=== PATIENT | male | born 2000 | race Two or more races ===

== ENCOUNTER 2025-01-25 13:16 | Inpatient (IN) | payer MEDICAID, OTHER ==
[~2025-01-25] VITALS: Ht 190.5 cm; Wt 137.8 kg
--- NOTE | 2025-01-25 14:05 | ED.PDOC ---
HPI (NEURO) HPI Comments This is a 24 year old male CHE[place] presenting to the ED with chief complaint of seizure. EMS reports patient was witnessed by step-father to have had a seizure lasting about a minute today, lowering him to the floor to prevent a fall or injury. EMS relays patient has had 2 seizures in the past, however, he has not been properly diagnosed with seizures and has not followed up with a neurologist. Patient denies any incontinence, oral trauma, head injury, fever, chills, chest pain, or headache. Chief Complaint: Seizure Time Seen by MD: 14:03 Reviewed Notes: Nurses Notes, Caser In Notes, Medications, Allergies Information Source: Patient, Emergency Med Personnel Mode of Arrival: EMS Severity: Moderate Timing: Hours Duration: Minutes Prehospital treatment: None Seizure Quality: Tonic-clonic Seizure Location: Generalized Onset: At rest Circumstances: Spontaneous Modifying factors: Nothing Past Medical History PAST MEDICAL HISTORY: Denies Surgical History: Denies all surgeries Family History Family History: Reviewed,noncontributory to illness Social History Smoker: Non-Smoker Alcohol: Denies ETOH Use Drugs: Denies Drug Use Lives In: Home Constitutional: denies: chills, diaphoresis, fatigue, fever, malaise, sweats, weakness, others EENTM: denies: blurred vision, double vision, ear bleeding, ear discharge, ear drainage, ear pain, ear ringing, eye pain, eye redness, hearing loss, mouth pain, mouth swelling, nasal discharge, nose bleeding, nose congestion, nose pain, photophobia, tearing, throat pain, throat swelling, voice changes, others Respiratory: denies: cough, hemoptysis, orthopnea, SOB at rest, shortness of breath, SOB with excertion, stridor, wheezing, others Cardiovascular: denies: chest pain, dizzy spells, diaphoresis, Dyspnea on exertion, edema, irregular heart beat, left arm pain, lightheadedness, palpitations, PND, syncope, others Gastrointestinal: denies: abdomen distended, abdominal pain, blood streaked bowels, constipated, diarrhea, dysphagia, difficulty swallowing, hematemesis, m nomi, nausea, poor appetite, poor fluid intake, rectal bleeding, rectal pain, vomiting, others Genitourinary: denies: burning, dysuria, flank pain, frequency, hematuria, incontinence, penile discharge, penile sore, pain, testicle pain, testicle swelling, urgency, others Neurological: reports: seizure; denies: dizziness, fainting, headache, left sided numbness, left sided weakness, numbness, paresthesia, pre-existing deficit, right sided numbness, right sided weakness, speech problems, tingling, tremors, weakness, others Musculoskeletal: denies: back pain, gout, joint pain, joint swelling, muscle pain, muscle stiffness, neck pain, others Integumetry: denies: bruises, change in color, change in hair/nails, dryness, laceration, lesions, lumps, rash, wounds, others Allergic/Immunocompromised: denies: Difficulty Healing, Frequent Infections, Hives, Itching, others Hematologic/Lymphatic: denies: anemia, blood clots, easy bleeding, easy bruising, swollen glands, others Endocrine: denies: excessive hunger, excessive sweating, excessive thirst, excessive urination, flushing, intolerance to cold, intolerance to heat, unexplained weight gain, unexplained weight loss, others Psychiatric: denies: anxiety, bipolar disorder, depression, hopeless, panic disorder, schizophrenia, sleepless, suicidal, others All Other Systems: Reviewed and Negative Physical Exam General Appearance: No Apparent Distress, Normal HEENT: Normal ENT Inspection, Pharynx Normal, TMs Normal Neck: Full Range of Motion, Non-Tender, Normal, Normal Inspection Respiratory: Chest Non-Tender, Lungs Clear, No Accessory Muscle Use, No Respiratory Distress, Normal Breath Sounds Cardiovascular: No Edema, No JVD, No Murmur, No Gallop, Normal Peripheral Pulses, Regular Rate/Rhythm Breast Exam: Deferred Gastrointestinal: No Organomegaly, Non Tender, No Pulsatile Mass, Normal Bowel Sounds, Soft Genitalia: Deferred Pelvic: Deferred Rectal: Deferred Extremities: No calf tenderness, Normal capillary refill, Normal inspection, Normal range of motion, Non-tender, No pedal edema Musculoskeletal : Apperance: Normal Neurologic: Alert, structures assembler II-XII nml as Tested, No Motor Deficits, Normal Affect, Normal Mood, No Sensory Deficits Cerebellar Function: Normal Reflexes: Normal Skin: Dry, Normal Color, Warm Lymphatic: No Adenopathy Was a procedure done? Was a procedure done?: No Differential Diagnosis (SZ) Seizure: CVA/TIA, Hypocalcemia CVA: Delirium Tremens General Weakness: Hypotension, Hypovolemia Headache: Closed Head Injury, Carbon Monoxide Toxicity, CVA, Subarachnoid Hemorrhage X-Ray, Labs, Meds, VS Vital Signs Date Time Temp Pulse Resp B/P (MAP) Pulse Ox O2 Delivery O2 Flow Rate FiO2 01/25/25 14:02 98.8 102 17 132/98 (109) 100 98.8 01/25/25 14:02 Room Air* 0 21 01/25/25 13:23 98.9 108 16 138/83 96 98.9 Lab Test 01/25/25 16:00 01/25/25 14:09 01/25/25 13:37 Range/Units Urine Color Light-yellow Yellow Urine Clarity Clear Clear Urine pH 5.5 5.0-9.0 Urine Specific [place] 1.014 1.001-1.035 Urine Protein Negative Negative Urine Ketones Trace Negative Urine Blood Negative Negative /uL Urine Nitrite Negative Negative Urine Bilirubin Negative Negative Urine Urobilinogen Normal Negative mg/dL Urine Leukocyte Esterase Negative Negative /uL Urine RBC None seen 0 - 3 /hpf Urine Microscopic WBC 1 0-3 /HPF Urine Squamous Epithelial Cells None seen <5 /hpf Urine Bacteria None seen None Seen /hpf Urine Glucose Normal Normal mg/dL Troponin I High Sensitivity 22 4 </=54 ng/L White Blood Count 9.5 4.4-10.8 10^3/uL Red Blood Count 5.25 4.5-5.90 10^6/uL Hemoglobin 16.3 13.5-17.5 g/dL Hematocrit 46.6 41.0-53.0 % Mean Corpuscular Volume 88.8 80.0-100.0 fL Mean Corpuscular Hemoglobin 31.0 28.0-32.0 pg Mean Corpuscular Hemoglobin Concent 34.9 32.0-36.0 g/dL Red Cell Distribution Width 13.2 11.8-14.3 % Platelet Count 335 140-450 10^3/uL Mean Platelet Volume 7.5 6.9-10.8 fL Neutrophils (%) (Auto) 62.2 37.0-80.0 % Lymphocytes (%) (Auto) 29.4 10.0-50.0 % Monocytes (%) (Auto) 6.6 0.0-12.0 % Eosinophils (%) (Auto) 1.4 0.0-7.0 % Basophils (%) (Auto) 0.4 0.0-2.0 % Neutrophils # (Auto) 5.9 1.6-8.6 10 ^3/uL Lymphocytes # (Auto) 2.8 0.4-5.4 10 ^3/uL Monocytes # (Auto) 0.6 0-1.3 10 ^3/uL Eosinophils # (Auto) 0.1 0-0.8 10 ^3/uL Basophils # (Auto) 0 0-0.2 10 ^3/uL Nucleated Red Blood Cells 0.1 % Sodium Level 140 136-145 mmol/L Potassium Level 3.9 3.5-5.1 mmol/L Chloride Level 102 98-107 mmol/L Carbon Dioxide Level 24 20-31 mmol/L Anion Gap 14 5-15 Blood Urea Nitrogen 12 9-23 mg/dL Creatinine 1.12 0.700-1.30 mg/dL Glomerular Filtration Rate Calc 94 >90 mL/min BUN/Creatinine Ratio 10.7 10.0-20.0 Serum Glucose 99 74-106 mg/dL Calcium Level 9.8 8.7-10.4 mg/dL Time of 1ST Reevaluation: 15:02 Reevaluation 1ST: Unchanged Patient Education/Counseling: Diagnosis, Treatment Family Education/Counseling: No Family Present Departure 1 Departure Time of Disposition: 17:13 (Patient likely with seizure disorder. Patient has not been evaluated for this prior and with the worsening seizures. Patient takes no medications. We will admit patient for further workup and expert consultation) Impression: Primary Impression: New onset seizure Disposition: ADMITTED INPATIENT Admit to: Med Surg Condition: Serious Critical Care Note Critical Care Time?: No Stability Stability form required: No Heart Score Heart Score: Heart Score Response (Comments) Value History N/A 0 EKG N/A 0 Age N/A 0 Risk Factors N/A 0 Troponin N/A 0 Total 0 I personally scribed for THOMAS SAMPSON MD ([email or web address]) on 01/25/25 at 14:05. Electronically submitted by Flakito Guerrero ([email or web address]). THOMAS SAMPSON MD Jan 25, 2025 14:05
[2025-01-25 14:11] LABS: Hematocrit 46.6 % (41.0-53.0); Hemoglobin 16.3 g/dL (13.5-17.5); Mean Corpuscular Hemoglobin 31.0 pg (28.0-32.0); Mean Corpuscular Volume 88.8 fL (80.0-100.0); Nucleated Red Blood Cells % 0.1 %
[2025-01-25 14:19] LABS: Chloride 102 mmol/L (98-107); Potassium 3.9 mmol/L (3.5-5.1); Sodium 140 mmol/L (136-145)
[2025-01-25 14:20] LABS: Anion Gap 14 (5-15); Calcium 9.8 mg/dL (8.7-10.4); Carbon Dioxide 24 mmol/L (20-31)
[2025-01-25 14:25] LABS: BUN/Creatinine Ratio 10.7 (10.0-20.0); Blood Urea Nitrogen 12 mg/dL (9-23); Glucose 99 mg/dL (74-106)
--- NOTE | 2025-01-25 14:44 | DVH ---
CHEST RADIOGRAPH Indication: Seizure Technique: XY CHEST PORTABLE Comparison: None FINDINGS: The cardiac silhouette is unremarkable. The lungs demonstrate no pulmonary airspace consolidation. The pulmonary vasculature is prominent. There is no pleural effusion. There is no pneumothorax. IMPRESSION: Pulmonary vasculature congestion.
--- NOTE | 2025-01-25 15:37 | DVH ---
CLINICAL HISTORY: Seizure TECHNIQUE: Helical scanning was performed of the head from the skull base to the vertex. Multiplanar reconstructions were performed. This exam was performed according to our departmental dose optimization program. Up-to-date CT equipment and radiation dose reduction techniques are utilized as appropriate. CTDI 53 DLP 967 COMPARISON: None FINDINGS: There is no evidence for acute intracranial hemorrhage, acute ischemic changes, mass, mass effect, or extra-axial fluid collection. There is no hydrocephalus or midline shift. There is no effacement of the cerebral sulci and basal subarachnoid cisterns. The almonte-white matter differentiation is well maintained. The imaged paranasal sinuses are clear. IMPRESSION: NO ACUTE INTRACRANIAL ABNORMALITY SEEN.
[2025-01-25 16:16] LABS: Urine Protein, UAD Negative (Negative)
[2025-01-25] MEDS ORDERED: ONDANSETRON HCL 4 MG/2 ML VIAL IV PRN (19:15)
[2025-01-25] MEDS ORDERED: LORazepam 2MG/ML-1ML VIAL IV PRN (19:15)
[2025-01-25] MEDS ORDERED: TEMAZEPAM 15 MG CAP PO PRN (19:15)
[2025-01-25] MEDS ORDERED: ACETAMINOPHEN 325 MG TAB PO PRN (19:15)
[2025-01-25 20:21] VITALS: PULSE 66; RESP 20; O2SAT 96
--- NOTE | 2025-01-25 22:20 | DVHHP2 ---
History of Present Illness Reason for Visit: Seizure History of Present Illness 24-year-old male presents for evaluation of seizure activity. Patient reports having an episode of a seizure lasting approximately 1 minute. He states his father witnessed it and was able to lower him to the ground. Denies any head trauma or oral trauma. He does report having two episodes of seizures in the past yet had not been diagnosed with seizures and is not taking any medication. Past Medical History Denies Past Surgical History Denies Family History Noncontributory Smoke: No ALCOHOL: none Drugs: None Lives: with Family Review of Systems Review of Systems Review of systems are currently negative otherwise addressed in HPI. Allergies: Coded Allergies: NO KNOWN ALLERGIES (Unverified , 01/25/25) Medications Current Medications Medications Dose Ordered Sig/Lucille Route Start Time Stop Time Status Last Admin Dose Admin Lorazepam 1 mg Q5MINP PRN IV 01/25/25 19:15 Temazepam 15 mg QHSP PRN PO 01/25/25 19:15 Ondansetron HCl 4 mg Q4HP PRN IV 01/25/25 19:15 Acetaminophen 650 mg Q6HP PRN PO 01/25/25 19:15 Exam Vital Signs Vital Signs Date Time Temp Pulse Resp B/P (MAP) Pulse Ox O2 Delivery O2 Flow Rate FiO2 01/25/25 20:21 66 20 96 Room Air* 0 21 01/25/25 20:00 98.5 127/64 (85) 98.5 Exam Gen: 24-year-old male in mild distress Skin: Warm, dry, normal color and texture, no rash. HEENT: Normocephalic atraumatic, mucous membranes moist and pink. Neck: Cervical and supraclavicular nodes normal without enlargement, trachea is midline, thyroid gland is normal without masses. Pulmonary: Clear to auscultation and percussion bilaterally. Cardiac: Regular rate and rhythm. No murmur Abdomen: Soft, nontender, nondistended, bowel sounds present all 4 quadrants, no guarding, no rigidity, no organomegaly. Extremities: No cyanosis, clubbing, no edema Neuro: Cranial nerves II through XII grossly intact, normal affect and speech, no focal motor deficits. Labs/Xrays ORDERING PHYSICIAN: THOMAS SAMPSON MD PROCEDURE(s): HWOCT - HEAD WITHOUT CONTRAST REASON: seizure ORDER NUMBER(s): [id number], ACCESSION NUMBER(s): [id number] CLINICAL HISTORY: Seizure TECHNIQUE: Helical scanning was performed of the head from the skull base to the vertex. Multiplanar reconstructions were performed. This exam was performed according to our departmental dose optimization program. Up-to-date CT equipment and radiation dose reduction techniques are utilized as appropriate. CTDI 53 DLP 967 COMPARISON: None FINDINGS: There is no evidence for acute intracranial hemorrhage, acute ischemic changes, mass, mass effect, or extra-axial fluid collection. There is no hydrocephalus or midline shift. There is no effacement of the cerebral sulci and basal subarachnoid cisterns. The almonte-white matter differentiation is well maintained. The imaged paranasal sinuses are clear. IMPRESSION: NO ACUTE INTRACRANIAL ABNORMALITY SEEN. Labs Test 01/25/25 17:40 01/25/25 16:00 01/25/25 13:37 Range/Units Troponin I High Sensitivity 33 </=54 ng/L Urine Color Light-yellow Yellow Urine Clarity Clear Clear Urine pH 5.5 5.0-9.0 Urine Specific [place] 1.014 1.001-1.035 Urine Protein Negative Negative Urine Ketones Trace Negative Urine Blood Negative Negative /uL Urine Nitrite Negative Negative Urine Bilirubin Negative Negative Urine Urobilinogen Normal Negative mg/dL Urine Leukocyte Esterase Negative Negative /uL Urine RBC None seen 0 - 3 /hpf Urine Microscopic WBC 1 0-3 /HPF Urine Squamous Epithelial Cells None seen <5 /hpf Urine Bacteria None seen None Seen /hpf Urine Glucose Normal Normal mg/dL White Blood Count 9.5 4.4-10.8 10^3/uL Red Blood Count 5.25 4.5-5.90 10^6/uL Hemoglobin 16.3 13.5-17.5 g/dL Hematocrit 46.6 41.0-53.0 % Mean Corpuscular Volume 88.8 80.0-100.0 fL Mean Corpuscular Hemoglobin 31.0 28.0-32.0 pg Mean Corpuscular Hemoglobin Concent 34.9 32.0-36.0 g/dL Red Cell Distribution Width 13.2 11.8-14.3 % Platelet Count 335 140-450 10^3/uL Mean Platelet Volume 7.5 6.9-10.8 fL Neutrophils (%) (Auto) 62.2 37.0-80.0 % Lymphocytes (%) (Auto) 29.4 10.0-50.0 % Monocytes (%) (Auto) 6.6 0.0-12.0 % Eosinophils (%) (Auto) 1.4 0.0-7.0 % Basophils (%) (Auto) 0.4 0.0-2.0 % Neutrophils # (Auto) 5.9 1.6-8.6 10 ^3/uL Lymphocytes # (Auto) 2.8 0.4-5.4 10 ^3/uL Monocytes # (Auto) 0.6 0-1.3 10 ^3/uL Eosinophils # (Auto) 0.1 0-0.8 10 ^3/uL Basophils # (Auto) 0 0-0.2 10 ^3/uL Nucleated Red Blood Cells 0.1 % Sodium Level 140 136-145 mmol/L Potassium Level 3.9 3.5-5.1 mmol/L Chloride Level 102 98-107 mmol/L Carbon Dioxide Level 24 20-31 mmol/L Anion Gap 14 5-15 Blood Urea Nitrogen 12 9-23 mg/dL Creatinine 1.12 0.700-1.30 mg/dL Glomerular Filtration Rate Calc 94 >90 mL/min BUN/Creatinine Ratio 10.7 10.0-20.0 Serum Glucose 99 74-106 mg/dL Calcium Level 9.8 8.7-10.4 mg/dL SEPSIS Sepsis Screen Date sepsis recognized/suspect: Jan 25, 2025 Time Sepsis recognized/suspect: 1327 Recent Procedure: No On Antibiotic Therapy: No Respiratory Rate >20: No Heart Rate >90: Yes Temp<36 C (96.8 F) or >38.3 C: No SBP <90 or MAP <65 mmHG: No New Acute Mental Status Change: No Is the patient on CPAP, BIPAP,: No Physician Orders * Neurology Consult (01/25/25 19:06) Lorazepam 2mg/Ml Inj (Ativan Inj) (01/25/25 19:15) Seizure Precautions In Place (01/25/25 19:06) Regular Diet (01/26/25 Breakfast) Admit (01/25/25 19:06) Temazepam (Restoril) (01/25/25 19:15) Ondansetron Hcl (Zofran) (01/25/25 19:15) Condition: Stable (01/25/25 19:06) Acetaminophen Tablet (Tylenol Tablet) (01/25/25 19:15) Bedrest With Bathroom Privileg (01/25/25 19:06) Vital Signs Date Time Temp Pulse Resp B/P (MAP) Pulse Ox O2 Delivery O2 Flow Rate FiO2 01/25/25 20:21 66 20 96 Room Air* 0 21 01/25/25 20:00 98.5 66 20 127/64 (85) 96 98.5 01/25/25 20:00 60 01/25/25 18:00 69 17 123/63 (83) 98 Laboratory Tests Test 01/25/25 13:37 White Blood Count 9.5 10^3/uL (4.4-10.8) Assessment/Plan Assessment/Plan Assessment New onset seizure Plan Admit the patient to Med surge to the hospitalist Seizure precautions in place Nephrology consultation Continue treatment per orders. Plan discussed with: Patient My Orders Orders - DONAVAN CORBETT Procedure Category Date Status Time * Neurology Consult CONS 01/25/25 Transmitted 19:06 Lorazepam 2mg/Ml Inj PHA 01/25/25 In Process (Ativan Inj) 19:15 Seizure Precautions ELYSSA 01/25/[address] 19:06 Regular Diet DIET 01/26/25 Transmitted Breakfast Admit ADMIT 01/25/25 Transmitted 19:06 Temazepam (Restoril) PHA 01/25/25 In Process 19:15 Ondansetron Hcl PHA 01/25/25 In Process (Zofran) 19:15 Condition: Stable ELYSSA 01/25/25 In Process 19:06 Acetaminophen Tablet PHA 01/25/25 In Process (Tylenol Tablet) 19:15 Bedrest With Bathroom ELYSSA 01/25/25 In Process Privileg 19:06 Date of Service: Jan 25, 2025 Billing Provider: DONAVAN CORBETT Common Visit Codes: [id number] INP/OBS CARE (MOD) DONAVAN CORBETT Jan 25, 2025 22:20
--- NOTE | 2025-01-26 09:01 | DVHINCON2 ---
Date of service: Jan 26, 2025 Referring Physician Marino Reason for Consultation New onset seizure History of Present Illness Mr. Bowers is a 24 years old right-handed gentleman with a history of obesity, but otherwise healthy, he was brought to the [facility] on 01/25/2025 with a chief complaint of seizure activity. At this time, he is alert and fully oriented, he and his family provided following history On 01/25/2025, he remembers he was shopping inside a store, but next memory was waking up on the floor with people around him, a laceration in the left side of tongue, but he claimed he was able to recognize people around him and the place. The family relates the patient had fall, shaking all over body, eyes rolling back and biting to the tongue After graduation from his high school, he had passing out event with complete amnesia, later his family was told that he had fall, shaking all over body, eyes rolling back He denies a history of traumatic brain injury, intracranial infection or family history of seizure disorder, he reports good sleep, no acute illness Urinalysis, 01/25/25: Unremarkable CBC, 01/25/2025: Unremarkable BMP, 01/25/2025: Unremarkable CT head, 01/25/2025: NO ACUTE INTRACRANIAL ABNORMALITY SEEN Past Medical History Obesity Past Surgical History None Family History No major medical problems Social History He does not smoke tobacco, but he uses marijuana, he denies a history of drug or alcohol abuse Allergies: Coded Allergies: NO KNOWN ALLERGIES (Unverified , 01/25/25) Current Medications Current Medications Medications (Trade) Dose Ordered Sig/Lucille Route PRN Reason Start Time Stop Time Status Last Admin Lorazepam (Ativan Inj) 1 mg Q5MINP PRN IV SEIZURES 01/25/25 19:15 Temazepam (Restoril) 15 mg QHSP PRN PO FOR INSOMNIA 01/25/25 19:15 Ondansetron HCl (Zofran) 4 mg Q4HP PRN IV NAUSEA / VOMITING 01/25/25 19:15 Acetaminophen (Tylenol Tablet) 650 mg Q6HP PRN PO PAIN SCALE 1-3 OR TEMP>100.4 01/25/25 19:15 Review of Systems As above, the other systems are negative, he does not drive Vital Signs Vital Signs Date Time Temp Pulse Resp B/P (MAP) Pulse Ox O2 Delivery O2 Flow Rate FiO2 01/26/25 08:00 98.8 66 20 129/58 (81) 96 98.8 01/26/25 07:29 Room Air* 0 21 Physical Exam GENERAL EXAM: General: the patient is well developed and nourished. No acute distress. HEENT: Normocephalic, neck is supple, no carotid bruits. No mass. RESPIRATORY: Normal respiratory effort with symmetrical lung expansion. Lungs clear to auscultation. CARDIOVASCULAR: Regular rate and rhythm with no murmurs. S1, S2. ABDOMEN: Soft, nontender, normal bowel sound NEUROLOGICAL: MENTAL STATUS: Awake and alert. Oriented to person, place, time and general circumstances. Able to give personal history. SPEECH, LANGUAGE, HIGHER CORTICAL FUNCTION: no aphasia or dysathria. CRANIAL NERVES: #2: Intact visual garner to confrontation. The optic discs were sharp. #3,4,6: Pupils are equal, round and reactive. EOMs full and conjugate. No nystagmus. #5: Facial sensation intact in all three divisions bilaterally. Mandibular strength intact. #7: Facial muscles symmetrical and strength intact. #8: Hearing grossly normal to voice. #9,10: Uvula and soft palate rise in the midline. Swallow and voice are normal. #11: Trapezius and sternomastoid strength intact bilaterally. #12: Tongue midline. No fasciculations or atrophy. SENSATION: Sensation to touch and pinprick is normal. MOTOR: Normal tone in the upper and lower extremity. Normal muscle bulk. No fasciculations. No abnormal movements or posturing. Muscle strength of the major groups in the upper extremities is 5/5. Muscle strength of the major groups in the lower extremities is 5/5. REFLEXES: Deep tendon reflexes normal and symmetrical. No pathological reflexes. CEREBELLAR/COORDINATION: Finger to nose and heel to luz are normal bilaterally. GAIT/STATION: deferred. Labs/Diagnostic Data Labs Test 01/25/25 17:40 01/25/25 16:00 01/25/25 13:37 Range/Units Troponin I High Sensitivity 33 </=54 ng/L Urine Color Light-yellow Yellow Urine Clarity Clear Clear Urine pH 5.5 5.0-9.0 Urine Specific [place] 1.014 1.001-1.035 Urine Protein Negative Negative Urine Ketones Trace Negative Urine Blood Negative Negative /uL Urine Nitrite Negative Negative Urine Bilirubin Negative Negative Urine Urobilinogen Normal Negative mg/dL Urine Leukocyte Esterase Negative Negative /uL Urine RBC None seen 0 - 3 /hpf Urine Microscopic WBC 1 0-3 /HPF Urine Squamous Epithelial Cells None seen <5 /hpf Urine Bacteria None seen None Seen /hpf Urine Glucose Normal Normal mg/dL White Blood Count 9.5 4.4-10.8 10^3/uL Red Blood Count 5.25 4.5-5.90 10^6/uL Hemoglobin 16.3 13.5-17.5 g/dL Hematocrit 46.6 41.0-53.0 % Mean Corpuscular Volume 88.8 80.0-100.0 fL Mean Corpuscular Hemoglobin 31.0 28.0-32.0 pg Mean Corpuscular Hemoglobin Concent 34.9 32.0-36.0 g/dL Red Cell Distribution Width 13.2 11.8-14.3 % Platelet Count 335 140-450 10^3/uL Mean Platelet Volume 7.5 6.9-10.8 fL Neutrophils (%) (Auto) 62.2 37.0-80.0 % Lymphocytes (%) (Auto) 29.4 10.0-50.0 % Monocytes (%) (Auto) 6.6 0.0-12.0 % Eosinophils (%) (Auto) 1.4 0.0-7.0 % Basophils (%) (Auto) 0.4 0.0-2.0 % Neutrophils # (Auto) 5.9 1.6-8.6 10 ^3/uL Lymphocytes # (Auto) 2.8 0.4-5.4 10 ^3/uL Monocytes # (Auto) 0.6 0-1.3 10 ^3/uL Eosinophils # (Auto) 0.1 0-0.8 10 ^3/uL Basophils # (Auto) 0 0-0.2 10 ^3/uL Nucleated Red Blood Cells 0.1 % Sodium Level 140 136-145 mmol/L Potassium Level 3.9 3.5-5.1 mmol/L Chloride Level 102 98-107 mmol/L Carbon Dioxide Level 24 20-31 mmol/L Anion Gap 14 5-15 Blood Urea Nitrogen 12 9-23 mg/dL Creatinine 1.12 0.700-1.30 mg/dL Glomerular Filtration Rate Calc 94 >90 mL/min BUN/Creatinine Ratio 10.7 10.0-20.0 Serum Glucose 99 74-106 mg/dL Calcium Level 9.8 8.7-10.4 mg/dL Assessment Recurrent grand mal seizure Plan/Recommendation Monitoring Supportive treatment Telemetry EEG MR brain scan A trial of Keppra 500 mg b.i.d., side effects discussed Ativan for seizure breakthrough More recommendation per clinical course Prognosis poor This medical document was created using an electronic medical record system with [employer] dictation system. Although this document has been carefully reviewed, there may still be some phonetic and typographical errors. These areas are purely typographical due to imperfections of the software programs, and do not reflect any compromise in the patient's medical care. Plan discussed with: Patient, Other TEJINDER MCELROY MD Jan 26, 2025 09:01
[2025-01-26] MEDS ORDERED: LORazepam 2MG/ML-1ML VIAL IV PRN (10:45)
--- NOTE | 2025-01-26 12:54 | DVH ---
PROCEDURE: MRI BRAIN HEAD WO CONTRAST Indication: Sz COMPARISON: 01/25/2025 TECHNIQUE: Multiplanar multisequence images of the brain are obtained. FINDINGS: There is no abnormal diffusion restriction. 4 mm FLAIR hyperintense focus within the right frontal centrum semiovale. There is no intracranial hemorrhage. No extra-axial fluid collection, mass effect or midline shift. The ventricles are midline and normal in size. The cisterns are patent. Normal intracranial flow voids are preserved. No abnormal susceptibility signal. The sinuses and mastoids are well pneumatized. The visualized orbits are unremarkable. IMPRESSION: No acute cerebrovascular ischemia. Single 4 mm punctate FLAIR hyperintense focus within the right frontal centrum semiovale which could be within normal limits stage or be secondary 2 etiologies including migraines, microvascular disease, vasculitis, demyelinating processes. Correlate clinically
--- NOTE | 2025-01-26 16:56 | DVHPN2 ---
Subjective I am assuming the care of the patient from today onwards who was under the care of the hospitalist team. Patient is here for grand mal seizures. 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 Medications Current Medications Medications Dose Ordered Sig/Lucille Route Start Time Stop Time Status Last Admin Dose Admin Lorazepam 1 mg Q5MINP PRN IV 01/25/25 19:15 Temazepam 15 mg QHSP PRN PO 01/25/25 19:15 Ondansetron HCl 4 mg Q4HP PRN IV 01/25/25 19:15 Acetaminophen 650 mg Q6HP PRN PO 01/25/25 19:15 Lorazepam 1 mg ONCE PRN IV 01/26/25 10:45 Laboratory Results Laboratory Tests 01/25/25 13:37 Urinalysis Test 01/25/25 16:00 Urine Color Light-yellow (Yellow) Urine Clarity Clear (Clear) Urine pH 5.5 (5.0-9.0) Urine Specific [place] 1.014 (1.001-1.035) Urine Protein Negative (Negative) Urine Ketones Trace (Negative) Urine Blood Negative /uL (Negative) Urine Nitrite Negative (Negative) Urine Bilirubin Negative (Negative) Urine Urobilinogen Normal mg/dL (Negative) Urine Leukocyte Esterase Negative /uL (Negative) Urine RBC None seen /hpf (0 - 3) Urine Microscopic WBC 1 /HPF (0-3) Urine Squamous Epithelial Cells None seen /hpf (<5) Urine Bacteria None seen /hpf (None Seen) Urine Glucose Normal mg/dL (Normal) Assessment/Plan Assessment/Plan 24-year-old young male with a known history of morbid obesity classII, previous history of seizures one episode couple of years ago presented to the hospital with generalized tonic-clonic convulsions found to have 1. New onset of seizures 2. Grand mal seizure 3. Morbid obesity classII -trial of Keppra as per Neurology recommendations, Ativan p.r.n., seizure precautions. -MRI brain shows no evidence of any acute pathology. Plan discussed with: Patient My Orders Orders - ALAN MCDANIEL MD Procedure Category Date Status Time Levetiracetam Tablet PHA 01/26/25 Transmitted (Keppra Tablet) 22:00 Problem List: (1) New onset seizure Date of Service: Jan 26, 2025 Billing Provider: ALAN MCDANIEL MD Common Visit Codes: [id number] INP/OBS CARE(HIGH) ALAN MCDANIEL MD Jan 26, 2025 16:56
[2025-01-26 17:30] VITALS: BP 142/76; PULSE 57; RESP 17; TEMP 97.8; O2SAT 100
[2025-01-26 21:00] VITALS: BP 132/79; PULSE 59; RESP 16; TEMP 97.6; O2SAT 97
[2025-01-26] MEDS: levETIRAcetam 500 MG TAB PO SCH (22:09)
[2025-01-27 01:00] VITALS: BP 123/72; PULSE 62; RESP 20; TEMP 98.2; O2SAT 97
[2025-01-27 05:00] VITALS: BP 122/74; PULSE 60; RESP 18; TEMP 98.1; O2SAT 97
[2025-01-27 09:00] VITALS: BP 117/82; PULSE 67; RESP 19; TEMP 98.4; O2SAT 98
--- NOTE | 2025-01-27 09:01 | DVHPN2 ---
Progress Note - Dictate Date Seen: Jan 27, 2025 Medical Necessity Reason Pt with a Central, PICC or Fol: No Subjective Mr. Bowers is a 24 years old right-handed gentleman with a history of obesity, but otherwise healthy, he was [facility] to [facility] 01/25/2025 with a chief complaint of seizure activity. I have seen and examined the patient, discussed with himself and his nurse, talked to his anti He is doing fine, fully oriented, no seizure activity EEG was normal, MRI showed a small FLAIR lesion, with uncertain clinical significance, I recommended follow up in six months of time Urinalysis, 01/25/25: Unremarkable CBC, 01/25/2025: Unremarkable BMP, 01/25/2025: Unremarkable CT head, 01/25/2025: NO ACUTE INTRACRANIAL ABNORMALITY SEEN MRI head, 01/26/2025: No acute cerebrovascular ischemia. Single 4 mm punctate FLAIR hyperintense focus within the right frontal centrum semiovale which could be within normal limits stage or be secondary 2 etiologies including migraines, microvascular disease, vasculitis, demyelinating processes. Correlate clinically vital signs Vital Sign Date Time Temp Pulse Resp B/P (MAP) Pulse Ox O2 Delivery O2 Flow Rate FiO2 01/27/25 05:00 98.1 60 18 122/74 (90) 97 98.1 01/26/25 20:00 Room Air* 0 21 Total Intake and Output 01/26/25 01/26/25 01/27/25 15:00 23:00 07:00 Intake Total 400 ml Output Total 800 ml Balance -800 ml 400 ml medications Current Medications Medications Dose Ordered Sig/Lucille Route Start Time Stop Time Status Last Admin Dose Admin Lorazepam 1 mg Q5MINP PRN IV 01/25/25 19:15 Temazepam 15 mg QHSP PRN PO 01/25/25 19:15 Ondansetron HCl 4 mg Q4HP PRN IV 01/25/25 19:15 Acetaminophen 650 mg Q6HP PRN PO 01/25/25 19:15 Lorazepam 1 mg ONCE PRN IV 01/26/25 10:45 Levetiracetam 500 mg BID PO 01/26/25 22:00 01/26/25 22:09 500 MG objective General: the patient is well developed and nourished. No acute distress. MENTAL STATUS: Subjective SPEECH, LANGUAGE, HIGHER CORTICAL FUNCTION: no aphasia or dysathria. CRANIAL NERVES: Pupils are equal, round and reactive. EOMs full and conjugate. No nystagmus. Facial sensation intact in all three divisions bilaterally. Mandibular strength intact. Facial muscles symmetrical and strength intact. Tongue midline. No fasciculations or atrophy. SENSATION: Sensation to touch and pinprick is normal. MOTOR: Normal tone in the upper and lower extremity. Normal muscle bulk. No fasciculations. No abnormal movements or posturing. Muscle strength of the major groups in the extremities is 5/5. REFLEXES: Deep tendon reflexes normal and symmetrical. No pathological reflexes. CEREBELLAR/COORDINATION: Finger to nose and heel to luz are normal bilaterally. GAIT/STATION: deferred laboratory and microbiology Laboratory Tests 01/25/25 13:37 Test 01/25/25 13:37 Range/Units Serum Glucose 99 74-106 mg/dL Problem List Recurrent grand mal seizure A small FLAIR lesion in the MR brain scan Assessment/Plan Monitoring Supportive treatment Telemetry EEG Keppra 500 mg b.i.d., side effects discussed Ativan for seizure breakthrough Follow-up MR brain scan in six months Okay to discharge from a neurologic point of view More recommendation per clinical course This medical document was created using an electronic medical record system with [employer] computerized dictation system. Although this document has been carefully reviewed, there may still be some phonetic and typographical errors. These areas are purely typographical due to imperfections of the software programs, and do not reflect any compromise in the patient's medical care. Prognosis poor Plan discussed with: Patient, Other Total Time (mins): 35 TEJINDER MCELROY MD Jan 27, 2025 09:01
[2025-01-27 10:02] LABS: Hepatitis B Surface Antigen Negative (Negative)
[2025-01-27 10:31] LABS: Hepatitis C Antibody Negative (Negative)
--- NOTE | 2025-01-27 10:46 | DVHEEG2 ---
Neurology EEG Procedural Note Procedural Note EXAM DATE: 01/26/2025 REFERRING DOCTOR: Dr. Mcelroy TECHNIQUE: Eighteen channels of EEG, 2 channels of EOG, and 1 channel of EKG were recorded using the [employer] 10/20 system. CLINICAL DATA: The patient was referred for an EEG evaluation for the evidence of seizure disorder. MEDICATIONS: See the chart BACKGROUND ACTIVITY: While the patient was awake, the background activity consisted of well regulated 9 Hz rhythmic waveforms, symmetrically distributed over both posterior quadrants and was reactive to eye opening. ACTIVATION: Hyperventilation: Not done Photic Stimulation: No photic convulsive response Sleep: Not seen IMPRESSION: This is a normal EEG. No focal, lateralized, or epileptiform features are noted. If clinically indicated to rule out a seizure disorder, recommend repeat EEG with sleep deprivation. The EKG channel showed a regular heart rate of 66/[place] [address] TEJINDER MCELROY MD Jan 27, 2025 10:46
[2025-01-27 13:00] VITALS: BP 141/69; PULSE 68; RESP 19; TEMP 97.9; O2SAT 98
[2025-01-27] MEDS ORDERED: KEP500T PO (14:53)
--- NOTE | 2025-01-27 14:55 | DVHDS2 ---
Discharge Summary Date of Admission Jan 25, 2025 at 19:06 Date of Discharge: Jan 27, 2025 Labs/Diagnostic Data: Laboratory Results Test 01/26/25 18:13 01/25/25 17:40 01/25/25 16:00 01/25/25 13:37 Hepatitis B Surface Antigen Negative (Negative) Hepatitis C Antibody Negative (Negative) Troponin I High Sensitivity 33 ng/L (</=54) Urine Color Light-yellow (Yellow) Urine Clarity Clear (Clear) Urine pH 5.5 (5.0-9.0) Urine Specific [place] 1.014 (1.001-1.035) Urine Protein Negative (Negative) Urine Ketones Trace (Negative) Urine Blood Negative /uL (Negative) Urine Nitrite Negative (Negative) Urine Bilirubin Negative (Negative) Urine Urobilinogen Normal mg/dL (Negative) Urine Leukocyte Esterase Negative /uL (Negative) Urine RBC None seen /hpf (0 - 3) Urine Microscopic WBC 1 /HPF (0-3) Urine Squamous Epithelial Cells None seen /hpf (<5) Urine Bacteria None seen /hpf (None Seen) Urine Glucose Normal mg/dL (Normal) White Blood Count 9.5 10^3/uL (4.4-10.8) Red Blood Count 5.25 10^6/uL (4.5-5.90) Hemoglobin 16.3 g/dL (13.5-17.5) Hematocrit 46.6 % (41.0-53.0) Mean Corpuscular Volume 88.8 fL (80.0-100.0) Mean Corpuscular Hemoglobin 31.0 pg (28.0-32.0) Mean Corpuscular Hemoglobin Concent 34.9 g/dL (32.0-36.0) Red Cell Distribution Width 13.2 % (11.8-14.3) Platelet Count 335 10^3/uL (140-450) Mean Platelet Volume 7.5 fL (6.9-10.8) Neutrophils (%) (Auto) 62.2 % (37.0-80.0) Lymphocytes (%) (Auto) 29.4 % (10.0-50.0) Monocytes (%) (Auto) 6.6 % (0.0-12.0) Eosinophils (%) (Auto) 1.4 % (0.0-7.0) Basophils (%) (Auto) 0.4 % (0.0-2.0) Neutrophils # (Auto) 5.9 10 ^3/uL (1.6-8.6) Lymphocytes # (Auto) 2.8 10 ^3/uL (0.4-5.4) Monocytes # (Auto) 0.6 10 ^3/uL (0-1.3) Eosinophils # (Auto) 0.1 10 ^3/uL (0-0.8) Basophils # (Auto) 0 10 ^3/uL (0-0.2) Nucleated Red Blood Cells 0.1 % Sodium Level 140 mmol/L (136-145) Potassium Level 3.9 mmol/L (3.5-5.1) Chloride Level 102 mmol/L (98-107) Carbon Dioxide Level 24 mmol/L (20-31) Anion Gap 14 (5-15) Blood Urea Nitrogen 12 mg/dL (9-23) Creatinine 1.12 mg/dL (0.700-1.30) Glomerular Filtration Rate Calc 94 mL/min (>90) BUN/Creatinine Ratio 10.7 (10.0-20.0) Serum Glucose 99 mg/dL (74-106) Calcium Level 9.8 mg/dL (8.7-10.4) Other Laboratory Tests 01/25/25 13:37 Brief Hx & Hospital Course: 24-year-old young male with a known history of morbid obesity classII, previous history of seizures one episode couple of years ago presented to the hospital with generalized tonic-clonic convulsions found to have new onset of seizure. As per patient patient has had a seizure in the past as well as per family member to. Patient is currently not on seizure medication. Patient underwent workup neurology was consulted patient was recommended to be on Keppra. Patient is currently being discharged under stable condition. No driving while on seizure medications. Diet weight reduction and exercise counseling for morbid obesity class II. Condition at Discharge: Stable Final Diagnosis/Problems List 24-year-old young male with a known history of morbid obesity classII, previous history of seizures one episode couple of years ago presented to the hospital with generalized tonic-clonic convulsions found to have 1. New onset of seizures 2. Grand mal seizure 3. Morbid obesity classII Discharge Disposition: Home SNF Discharge Will this Physician continue t: No Discharge Instruct/Medications Diet: Cardiac 2g Na,low cholest Activity: See Comment Activity comment: No driving while on seizure medications. Follow Up/Referral: Please follow up with the PCP and Neurology in 1-2 weeks Medications: Keppra as prescribed. New Medications: Levetiracetam (Keppra Tablet) 500 Mg Tb 500 MG PO BID, #60 TAB Scheduled Levetiracetam (Keppra Tablet), 500 MG PO BID Discharge Statement: "Patient was advised to return to the ER or call 911 if any headaches, dizziness, shortness of breath, chest pain, abdominal pain, bleeding, fevers, or worsening of medical condition. Patient was counseled about treatment plan, medications, possible side effects, patientverbalized understanding. All questions were answered to the best of my ability. This discharge took greater then 30 minutes in planning, reviewing documentation, counseling the patient, and discussing with other team members." ASSESSMENT ASSESSMENT Assessment 24-year-old young male with a known history of morbid obesity classII, previous history of seizures one episode couple of years ago presented to the hospital with generalized tonic-clonic convulsions found to have 1. New onset of seizures 2. Grand mal seizure 3. Morbid obesity classII Date of Service: Jan 27, 2025 Billing Provider: ALAN MCDANIEL MD Common Visit Codes: [id number] DISCH DAY >30min ALAN MCDANIEL MD Jan 27, 2025 14:55
[2025-01-27 17:00] VITALS: BP 105/78; PULSE 65; RESP 19; TEMP 98; O2SAT 98
== END 2025-01-27 17:25 | disposition home or self-care (01) | DRG 53 ==
LOC: ER 13:16 → EDBD 13:16 → OVERFLOW 19:06 → WEST WING 01-26 16:59
PROVIDERS: ADMIT Internal Medicine; ATTEND Internal Medicine
DX: G40.409 Other generalized epilepsy and epileptic syndromes, not intractable, without status epilepticus (principal); E66.01 Morbid (severe) obesity due to excess calories; E66.812 Obesity, class 2; Z68.38 Body mass index [BMI] 38.0-38.9, adult
CPT/HCPCS: 36415; 70450; 70551; 71045; 80048; 81001; 84484; 85025; 86803; 87340; 95819; G0378